=== PATIENT | female | born 1945 | race Caucasian/White ===

== ENCOUNTER 2016-12-10 09:38 | Emergency (ER) | payer MEDICARE, OTHER ==
[~2016-12-10] VITALS: Ht 154.9 cm; Wt 63.0 kg
[~2016-12-10 09:38] MED LIST: ASPI81TA82 PO; ATEN-100 PO; ATOR40TA49 PO; BIOTCAP PO; HYDR-3533 PO; NIAC250C6 PO; OMEP20TA39 PO; PAXI20TA26 PO; PROBCAP4 PO; TAB-TAB PO; VITA200017 PO; VITA500T49 PO
[2016-12-10 09:44] VITALS: BP 155/90; PULSE 79; RESP 16; TEMP 99; O2SAT 98
[2016-12-10] MEDS ORDERED: VITA10002 PO (09:58)
[2016-12-10] MEDS ORDERED: ATEN25TA PO (09:58)
[2016-12-10] MEDS ORDERED: OMEP20TA PO (09:58)
[2016-12-10] MEDS ORDERED: LIPI80TA PO (09:58)
[2016-12-10] MEDS ORDERED: PAXI20TA PO (09:58)
[2016-12-10] MEDS ORDERED: ASPI81CH37 CHEW (09:58)
[2016-12-10] MEDS ORDERED: BIOT10TA PO (09:58)
[2016-12-10] MEDS ORDERED: LACTCAP8 PO (09:58)
[2016-12-10] MEDS ORDERED: ZOFR4TAB PO (10:22)
--- NOTE | 2016-12-10 10:25 | PD ---
HPI Chief Complaint: Musculoskeletal Complaint Time Seen by Provider: 09:58 Travel History International Travel<30 days: No Contact w/Intl Traveler<30days: No Traveled to known affect area: No History of Present Illness HPI The patient was seen and examined in the presence of the nurse. This patient complains of some myalgias across her upper back and shoulders and neck. No injury. No fever. She's had some nausea. She complained of some swelling in her fingers of both hands. His pain anxious lately according to her . No chest pain PFSH Past Medical History Hx Anticoagulant Therapy: Yes (asa 81mg) Anxiety: Yes Depression: Yes Cancer: No Cardiovascular Problems: Yes (htn on meds, 1 vessel bypass 2013) High Cholesterol: Yes Chest Pain: Yes Coronary Artery Disease: Yes Diabetes: No Diminished Hearing: No Endocrine: No GERD: Yes Glaucoma: No Genitourinary: No Hepatitis: No Hiatal Hernia: No Hypertension: Yes Immune Disorder: No Psychiatric: Yes Reproductive: No Respiratory: No Thyroid Disease: No ?: Not Past Surgical History Coronary Artery Bypass Graft: Yes Gynecologic Surgery: Yes (HYSTERECTOMY) Hysterectomy: Yes Pacemaker: No Other Surgery: Yes (RIGHT ROTATOR CUFF REPAIR) Social History Alcohol Use: Yes (1 GLASS WINE DAILY) Tobacco Use: No Substance Use: No Allergies-Medications (Allergen,Severity, Reaction): Coded Allergies: No Known Allergies (Unverified , 12/10/16) Reported Meds & Prescriptions Reported Meds & Active Scripts Active Reported Biotin 10 Mg Tab 10 Mg PO DAILY Vitamin B-12 (Cyanocobalamin) 1,000 Mcg Tab 1,000 Mcg PO DAILY Probiotic (Lactobacillus Acidophilus) 1 Cap Cap 1 Cap PO WEEKLY Paxil (Paroxetine HCl) 20 Mg Tab 20 Mg PO DAILY Omeprazole 20 Mg Tab 20 Mg PO DAILY Aspirin Low Dose (Aspirin) 81 Mg Chew 81 Mg CHEW DAILY Lipitor (Atorvastatin Calcium) 80 Mg Tab 80 Mg PO HS Atenolol 25 Mg Tab 12.5 Mg PO BID Review of Systems General / Constitutional: No: Fever Eyes: No: Drainage Cardiovascular: No: Chest Pain or Discomfort Respiratory: No: Shortness of Breath Gastrointestinal: Positive: Nausea Musculoskeletal: Positive: Myalgias Physical Exam Narrative GENERAL: Well-nourished, well-developed patient in no apparent distress. SKIN: Focused skin assessment reveals no rash and nodules. Skin is Warm and dry. HEAD: Atraumatic. Normocephalic. EYES: Pupils equal and round. No scleral icterus. No injection or drainage. ENT: No nasal bleeding or discharge. Mucous membranes pink and moist. NECK: Trachea midline. No JVD. No meningeal signs or midline tenderness CARDIOVASCULAR: Regular rate and rhythm. No murmur appreciated. RESPIRATORY: No accessory muscle use. Clear to auscultation. Breath sounds equal bilaterally. GASTROINTESTINAL: Abdomen soft, non-tender, nondistended. Hepatic and splenic margins not palpable. MUSCULOSKELETAL: No obvious deformities. No clubbing. No cyanosis. No edema. NEUROLOGICAL: Awake and alert. No obvious cranial nerve deficits. Motor grossly within normal limits. Normal speech. PSYCHIATRIC: Appropriate mood and affect; insight and judgment normal. Data Data Last Documented VS Vital Signs Date Time Temp Pulse Resp B/P Pulse Ox O2 Delivery O2 Flow Rate FiO2 12/10/16 09:44 99.0 79 16 155/90 98 MDM Medical Decision Making Medical Screen Exam Complete: Yes Emergency Medical Condition: Yes Medical Record Reviewed: Yes Differential Diagnosis Flu syndrome, myalgias, URI Narrative Course I have reviewed the patient's electronic medical record. Patient looks clinically well. No objective findings on exam. Vitals are normal other than minimal hypertension Wrote her some nausea medicine to use as needed I think primary care follow-up as her next step. I've asked her to call her physician today for follow-up. Diagnosis Primary Impression: Myalgia Additional Impression: Nausea alone Additional Instructions: The patient was advised to follow up with their physician and return if they worsen. Med/Other Pt SpecificInfo: Prescription(s) given Scripts Ondansetron (Zofran)4 Mg Tab4 Mg PO Q6HR PRN (NAUSEA OR VOMITING) #14 TAB Ref 0 Prov:Lionel Delgado MD 12/10/16 Disposition: 01 DISCHARGE HOME Condition: Stable Lionel Delgado MD Dec 10, 2016 10:25
== END 2016-12-10 10:36 | disposition home or self-care (01) ==
LOC: PHED 09:38
DX: M79.1 Myalgia (principal); R11.0 Nausea
CPT/HCPCS: 99283